=== PATIENT | male | born 1945 | race Caucasian/White ===

== ENCOUNTER 2020-11-27 08:34 | Outpatient (CLI) | payer MEDICARE | END 2020-11-27 08:35 | disposition home or self-care (01) | LOC: CSHCT 08:34 | PROVIDERS: ATTEND Specialist | DX: I42.2 Other hypertrophic cardiomyopathy (principal); I51.7 Cardiomegaly | CPT/HCPCS: 71275; 82565 ==

== ENCOUNTER 2022-01-22 13:25 | Inpatient (IN) | payer MEDICARE ==
[2022-01-22] MEDS ORDERED: Digoxin 0.5 MG/2 ML AMP ONE (13:51)
[2022-01-22 14:06] LABS: #Monocytes 0.6 10x3/uL (0.0-1.1); #Neutrophils 5.1 10x3/uL (1.5-8.4); %Basophils 0.1 % (0.0-2.0); %Eosinophils 0.3 % (0.0-6.0); %Lymphocytes 14.4 % (18.0-47.0); %Monocytes 9.1 % (0.0-10.0); %Neutrophils 75.8 % (40.0-75.0); Hemoglobin 12.5 g/dL (13.5-17.5); Mean Corpuscular HGB CONC 33.3 g/dL (32.0-36.0); Mean Corpuscular Volume 93.1 fl (81.2-95.1); Mean Platelet Volume 10.1 fl (7.4-10.4); Platelet Count 168 10x3/uL (150-450); RBC Distribution Width 16.8 % (11.5-14.5); Red Blood Cell (RBC) Count 4.03 10x6/uL (4.32-5.72); White Blood Cell (WBC) Count 6.7 10x3/uL (3.5-10.5)
[2022-01-22] MEDS ORDERED: Senokot S 8.6-50 MG TAB PO PRN (14:19)
[2022-01-22] MEDS ORDERED: Ondansetron ODT 4 MG TAB PO PRN (14:19)
[2022-01-22] MEDS ORDERED: Loperamide HCl 2 MG CAP PO PRN (14:19)
[2022-01-22] MEDS ORDERED: Calcium Carbonate 500 MG ChewTAB PO PRN (14:19)
[2022-01-22] MEDS ORDERED: HYDROcodone/Acetaminophen 5/325 mg Tablet PO PRN ×2 (14:19)
[2022-01-22 14:20] LABS: ALT (SGPT) 116 U/L (8-55); AST (SGOT) 61 U/L (5-34); Albumin 3.9 g/dL (3.4-4.8); Alkaline Phosphatase 123 U/L (40-110); Anion Gap 16 mmol/L (10-20); BUN (Urea Nitrogen) 45 mg/dL (8.4-25.7); Bilirubin, Total 0.8 mg/dL (0.2-1.2); CK (CPK) 47 U/L (30-200); Calc. Creatinine Clearance 0 mL/min (70-130); Calcium 9.5 mg/dL (7.8-10.44); Carbon Dioxide 24 mmol/L (23-31); Chloride 105 mmol/L (98-107); Estimated GFR 91; Globulin 2.8 g/dL (2.4-3.5); Glucose 116 mg/dL (83-110); Magnesium 2.2 mg/dL (1.6-2.6); Potassium 4.8 mmol/L (3.5-5.1); Protein, Total 6.7 g/dL (5.8-8.1); Sodium 140 mmol/L (136-145)
[2022-01-22] MEDS ORDERED: Digoxin 0.5 MG/2 ML AMP SLOW IVP SCH (16:00)
[2022-01-22 17:04] LABS: Troponin I 0.012 ng/mL (< 0.028)
[2022-01-22 18:12] VITALS: BMI 20.5
[2022-01-22 20:41] LABS: Troponin I 0.014 ng/mL (< 0.028)
[2022-01-22] MEDS: Apixaban 5 MG TAB PO SCH (21:21)
[2022-01-22] MEDS: Atorvastatin Calcium 10 MG TAB PO SCH (21:21)
[2022-01-23 05:09] LABS: #Eosinphils 0.1 10x3/uL (0.0-0.5); #Monocytes 0.6 10x3/uL (0.0-1.1); %Basophils 0.4 % (0.0-2.0); %Eosinophils 2.1 % (0.0-6.0); %Lymphocytes 15.5 % (18.0-47.0); %Monocytes 11.2 % (0.0-10.0); %Neutrophils 70.3 % (40.0-75.0); Hemoglobin 11.4 g/dL (13.5-17.5); Mean Corpuscular Hemoglobin 30.9 pg (27.0-33.0); Mean Corpuscular Volume 93.5 fl (81.2-95.1); Mean Platelet Volume 10.1 fl (7.4-10.4); Platelet Count 155 10x3/uL (150-450); RBC Distribution Width 16.7 % (11.5-14.5); Red Blood Cell (RBC) Count 3.69 10x6/uL (4.32-5.72); White Blood Cell (WBC) Count 5.6 10x3/uL (3.5-10.5)
[2022-01-23 05:10] LABS: Anion Gap 12 mmol/L (10-20); BUN (Urea Nitrogen) 37 mg/dL (8.4-25.7); Calc. Creatinine Clearance 81 mL/min (70-130); Calcium 8.5 mg/dL (7.8-10.44); Carbon Dioxide 26 mmol/L (23-31); Chloride 108 mmol/L (98-107); Estimated GFR 95; Glucose 75 mg/dL (83-110); Sodium 142 mmol/L (136-145)
[2022-01-23] MEDS: Levothyroxine Sodium 25 MCG TAB PO SCH (05:24)
[2022-01-23] MEDS ORDERED: Furosemide 20 MG/2 ML VIAL SLOW IVP SCH (08:00)
[2022-01-23] MEDS ORDERED: Carvedilol 3.125 MG TAB PO SCH (08:00)
[2022-01-23] MEDS ORDERED: Aspirin 81 mg Enteric Coated Tablet PO SCH (09:00)
[2022-01-23] MEDS ORDERED: PHENYLEPHRINE-NS 100 MCG/ML 10 ML SYRINGE ONE (09:29)
[2022-01-23] MEDS ORDERED: ePHEDrine Sulfate 50 MG/10 ML VIAL ONE (09:30)
[2022-01-23] MEDS ORDERED: PROPOFOL 20 ML ONE (11:39)
[2022-01-23] MEDS ORDERED: Amiodarone 200 MG TAB PO SCH (12:30)
[2022-01-23] MEDS: Apixaban 5 MG TAB PO SCH ×2 (13:03→21:57)
[2022-01-23] MEDS: Tamsulosin HCl 0.4 MG CAP PO SCH (13:03)
[2022-01-23] MEDS: Carvedilol 3.125 MG TAB PO SCH (17:14)
[2022-01-23] MEDS: Atorvastatin Calcium 10 MG TAB PO SCH (21:57)
[2022-01-23] MEDS: Amiodarone 200 MG TAB PO SCH (21:57)
[2022-01-24] MEDS: Levothyroxine Sodium 25 MCG TAB PO SCH (05:15)
[2022-01-24] MEDS ORDERED: Lisinopril 2.5 MG TAB PO SCH (09:00)
[2022-01-24] MEDS: Tamsulosin HCl 0.4 MG CAP PO SCH (09:15)
[2022-01-24] MEDS: Carvedilol 3.125 MG TAB PO SCH (09:15)
[2022-01-24] MEDS: Apixaban 5 MG TAB PO SCH (09:15)
[2022-01-24] MEDS: Amiodarone 200 MG TAB PO SCH (09:15)
[2022-01-24 11:22] VITALS: BP 108/57; TEMP 98.1
== END 2022-01-24 13:29 | disposition home or self-care (01) | DRG 308 ==
LOC: CSHERS 13:25 → CSHTELE 18:05
PROVIDERS: ADMIT Specialist; ATTEND Specialist
PROC: 5A2204Z Restoration of Cardiac Rhythm, Single (ICD-10-PCS; principal; 2022-01-23)
PROC: B24BZZ4 Ultrasonography of Heart with Aorta, Transesophageal (ICD-10-PCS; 2022-01-23)
DX: I48.92 Unspecified atrial flutter (principal); I50.21 Acute systolic (congestive) heart failure; R64 Cachexia; I48.0 Paroxysmal atrial fibrillation; E78.2 Mixed hyperlipidemia; E03.9 Hypothyroidism, unspecified; G47.33 Obstructive sleep apnea (adult) (pediatric); I95.9 Hypotension, unspecified; N40.0 Benign prostatic hyperplasia without lower urinary tract symptoms; I11.0 Hypertensive heart disease with heart failure; E78.00 Pure hypercholesterolemia, unspecified; Z68.20 Body mass index [BMI] 20.0-20.9, adult; Z79.82 Long term (current) use of aspirin; Z79.899 Other long term (current) drug therapy; Z79.890 Hormone replacement therapy
CPT/HCPCS: 36415; 71045; 80048; 80053; 82550; 83605; 83735; 83880; 84443; 84484; 85025; 92960; 93005; 93312; 96374; J1160; J1940; J2704